=== PATIENT | male | born 1955 | race Caucasian/White ===

== ENCOUNTER 2020-09-19 12:17 | Emergency (ER) | payer MEDICAID ==
[~2020-09-19] VITALS: Ht 180.3 cm; Wt 75.0 kg
[~2020-09-19 12:17] MED LIST: HYDR-4353 PO
[2020-09-19 12:47] LABS: BASOPHILS # (AUTO) 0.1 X10'3 (0-0.2); BASOPHILS % (AUTO) 0.9 % (0-1); EOSINOPHILS % (AUTO) 0.5 % (0-6); HEMATOCRIT 42.6 % (42.0-52.0); HEMOGLOBIN 14.4 g/dl (14.0-17.9); LYMPHOCYTES # (AUTO) 1.6 X10'3 (1.1-4.8); LYMPHOCYTES % (AUTO) 15.2 % (21-51); MEAN CORPUSCULAR HEMOGLOBIN 31.5 PG (27.0-31.0); MEAN CORPUSCULAR HGB CONC 33.9 g/dL (33.0-36.5); MEAN CORPUSCULAR VOLUME 92.7 FL (78-98); MEAN PLATELET VOLUME 8.4 FL (7.4-10.4); MONOCYTES # (AUTO) 0.5 X10'3 (0-0.9); MONOCYTES % (AUTO) 5.2 % (2-12); NEUTROPHILS % (AUTO) 78.2 % (42-75); PLATELET COUNT 218 X10'3 (140-440); RED BLOOD COUNT 4.59 X10'6 (4.70-6.10); RED CELL DISTRIBUTION WIDTH 12.9 % (11.5-14.5); WHITE BLOOD COUNT 10.3 X10'3 (4.5-11.0)
[2020-09-19 13:00] LABS: ALANINE AMINOTRANSFERASE 24 U/L (12-78); ALBUMIN 4.3 G/DL (3.4-5.0); ALBUMIN/GLOBULIN RATIO 1.4 (1.1-1.5); ALKALINE PHOSPHATASE 72 IU/L (46-116); ANION GAP 10 (8-16); ASPARTATE AMINO TRANSFERASE 20 U/L (10-37); BILIRUBIN,TOTAL 0.5 MG/DL (0.1-1.0); BLOOD UREA NITROGEN 11 MG/DL (7-18); BUN/CREATININE RATIO 13.9 (5.4-32.0); CALCIUM 8.9 MG/DL (8.5-10.1); CHLORIDE 103 MMOL/L (99-107); CREATININE 0.79 MG/DL (0.60-1.10); GLUCOSE 99 MG/DL (70-104); POTASSIUM 3.7 MMOL/L (3.5-5.1); SODIUM 139 MMOL/L (135-145); TOTAL CARBON DIOXIDE 26.1 MMOL/L (24-32); TOTAL PROTEIN 7.4 G/DL (6.4-8.2); eGFR > 90 ML/MIN
[2020-09-19 13:09] LABS: ETHANOL < 0.010 GM/DL (0.0-0.010)
--- NOTE | 2020-09-19 13:34 | NUR ---
PTS GIRL FRIEND CALLED MILENA SANCHEZ [phone]
[2020-09-19 13:38] LABS: CLARITY,URINE CLEAR (Clear); COLOR,URINE YELLOW (Yellow); GLUCOSE, URINE NEGATIVE (Neg); KETONES,URINE NEGATIVE (Neg); LEUKOCYTE ESTERASE ,URINE NEGATIVE (Neg); NITRITES, URINE NEGATIVE (Neg); OCCULT BLOOD,URINE NEGATIVE (Neg); PROTEIN,URINE NEGATIVE (Neg); UROBILINOGEN,URINE 0.2 E.U/dL (0.2-1.0)
[2020-09-19 13:39] LABS: UA COLLECTION TYPE VOIDED
[2020-09-19 13:47] LABS: URINE AMPHETAMINE SCREEN NEGATIVE (Neg); URINE BARBITUATE SCREEN NEGATIVE (Neg); URINE BENZODIAZEPINES SCREEN NEGATIVE (Neg); URINE CANNABINOID SCREEN NEGATIVE (Neg); URINE COCAINE SCREEN NEGATIVE (Neg); URINE METHADONE SCREEN NEGATIVE (Neg); URINE OPIATE SCREEN POSITIVE (Neg); URINE PHENCYCLIDINE SCREEN NEGATIVE (Neg)
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
[2020-09-19] MEDS ORDERED: QUET25TA34 PO (19:23)
[2020-09-19] MEDS ORDERED: HYDR-3964 PO (19:23)
--- NOTE | 2020-09-19 19:54 | NUR ---
PT'S GIRLFRIEND WAS CALLED AND SHE SAID HE DOESNT TAKE ANY MEDS THAT HE WAS PRESCRIBED PSYC MEDS AND STOPPED TAKING THEM BECAUSE THEY MADE HIM FEEL "LIKE A ZOMBIE". SHE SAID THAT HE HAS BEEN HEARING VOICES FOR THE LAST FEW MONTHS AND THEY HAVE BEEN TEASING HIM PER HIS GIRLFRIEND. SHE ALSO SAYS THAT HE IS HAVING TROUBLE WITH HIS HEARING IN [place] OF HEARING. SHE STATES THAT HIS PCP MILTON SANTIZO WITH [facility].
--- NOTE | 2020-09-19 20:29 | NUR ---
Pt was talking on the phone, mild mannored and polite. Gave pt his meal tray after checking for safety precautions. Pt at 80% of his tray.
[2020-09-20] MEDS ORDERED: QUET25TA34 PO (00:55)
[2020-09-20] MEDS ORDERED: HYDROcodone/acetaminophen 5mg/325mg tablet PO PRN (01:00)
[2020-09-20] MEDS ORDERED: QUEtiapine 25mg tablet PO ONE (01:10)
--- NOTE | 2020-09-20 01:16 | NUR ---
PT WAS VERY RESTLESS AND A PO SERAQUEL WAS ORDERED, PT WAS RELUCTANT TO TAKE IT BUT AFTER EXPLAINING TO PT THAT IT WILL HELP HIM, HE ENDED UP TAKING IT.
--- NOTE | 2020-09-20 01:44 | NUR ---
Pt assisted to restroom and safely back in bed.
--- NOTE | 2020-09-20 02:25 | NUR ---
Pt sleeping on left side, even and unlabored respirations. No signs of distress, will continue to watch pt.
--- NOTE | 2020-09-20 05:50 | NUR ---
PT IS AWAKE, LAYING IN BED PEACEFULLY
[2020-09-20] MEDS ORDERED: ondansetron 4mg rapidly disintigrating tab PO ONE (07:00)
--- NOTE | 2020-09-20 07:00 | NUR ---
PT SITTING UP IN CHAIR, NAUSEA DRY HEAVING. STATES MY TEMP IS USUALLY 96.0 AND NOW ITS UP TO 100.0. PTS TEMP CHECKED 98.0
--- NOTE | 2020-09-20 07:49 | NUR ---
UP TO BR X 2 THIS AM. ACCOMPANIED BY SUDARSHAN OWENS
--- NOTE | 2020-09-20 08:03 | NUR ---
BRITTNI PICKENS FROM [facility] CALLED REPORT GIVEN.
--- NOTE | 2020-09-20 09:01 | NUR ---
NANDO FROM [facility] CALLED. PT HAS BEEN ACCEPTED TO [facility]. ARRANGEMENTS HAVE BEEN MADE TO PICK PT UP AT 1830 TODAY. REQUESTING COVID SWAB TO BE GIVEN.
--- NOTE | 2020-09-20 10:36 | NUR ---
PATIENT ON THE PHONE, WE WILL MONITOR.
--- NOTE | 2020-09-20 12:33 | NUR ---
PT SITTING IN ROOM RAMBLING ON, FLIGHT OF IDEAS
--- NOTE | 2020-09-20 13:45 | NUR ---
FAXED COVID RESULT TO [facility].
--- NOTE | 2020-09-20 14:03 | NUR ---
PATIENT BROUGHT TO ER OVERFLOW, AMBULATORY, TO BED 25 AND RESTING IN BED.
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
[2020-09-20 18:54] VITALS: BP 137/83
[2020-09-20] MEDS ORDERED: QUEtiapine 25mg tablet PO SCH (21:00)
== END 2020-09-20 18:57 ==
LOC: ER 12:18
DX: F22 Delusional disorders (principal); Z20.822 Contact with and (suspected) exposure to COVID-19; R47.81 Slurred speech; Z79.899 Other long term (current) drug therapy
CPT/HCPCS: 36415; 70450; 80053; 80305; 80320; 81003; 84443; 85025; 87635; 99285; C9803